=== PATIENT | female | born 1950 | race Caucasian/White ===

== ENCOUNTER 2023-04-27 07:46 | Outpatient (CLI) | payer MEDICARE, OTHER ==
[~2023-04-27] VITALS: Ht 162.6 cm; Wt 69.9 kg
[2023-04-27 08:06] VITALS: BP 163/84; PULSE 62; TEMP 98.1
[2023-04-27] MEDS ORDERED: ESTRACE2 MG PO (08:16)
--- NOTE | 2023-04-27 08:50 | NUR ---
pt observed for 20 minutes following initial injection of evenity. vs remain within normal limits and she ambulates independently following injection. pt free from acute concerns and complaints upon discharge. pt continues to tolerate po fluids.
== END 2023-04-27 09:06 | disposition home or self-care (01) ==
LOC: EUO 07:46
DX: M81.0 Age-related osteoporosis without current pathological fracture (principal)
CPT/HCPCS: J3111

== ENCOUNTER 2023-05-25 14:25 | Outpatient (RCR) | payer MEDICARE, OTHER ==
[~2023-05-25] VITALS: Ht 162.6 cm; Wt 69.4 kg
[2023-05-25 09:22] VITALS: BP 154/83; PULSE 70; TEMP 97.7
[~2023-05-25 14:25] MED LIST: ESTRACE2 MG PO; EVENITY (2210 MG/2.3 SQ
== END 2023-05-25 14:58 ==
LOC: EUO 14:25
DX: M81.0 Age-related osteoporosis without current pathological fracture (principal)
CPT/HCPCS: J3111

== ENCOUNTER 2023-07-24 14:06 | Outpatient (RCR) | payer MEDICARE, OTHER ==
[~2023-07-24] VITALS: Ht 162.6 cm; Wt 68.7 kg
[2023-07-24 14:18] VITALS: BP 145/91; PULSE 64; TEMP 97.8
--- NOTE | 2023-07-24 14:27 | NUR ---
pt tolerated injections well and vs remained within normal limits. pt ambulated to main lobby. free from acute concerns and complaints.
[2023-07-24] MEDS ORDERED: Romosozumab-aqqg 210 MG/2.34 ML 2-Syringe KIT SQ ONE (14:30)
== END 2023-07-24 14:29 | disposition home or self-care (01) ==
LOC: EUO 14:06
DX: M81.0 Age-related osteoporosis without current pathological fracture (principal)
CPT/HCPCS: J3111

== ENCOUNTER 2023-11-14 14:03 | Outpatient (RCR) | payer MEDICARE, OTHER ==
[~2023-11-14] VITALS: Ht 162.6 cm; Wt 67.0 kg
[2023-11-14] MEDS ORDERED: Romosozumab-aqqg 210 MG/2.34 ML 2-Syringe KIT SQ ONE (14:15)
[2023-11-14 14:23] VITALS: BP 127/79; PULSE 89; TEMP 98
--- NOTE | 2023-11-14 14:35 | NUR ---
Pt tolerated evenity without issue. She exits dept with steady gait. Free of complaints at discharge.
== END 2023-11-14 14:35 | disposition home or self-care (01) ==
LOC: EUO 14:03
DX: M81.0 Age-related osteoporosis without current pathological fracture (principal)
CPT/HCPCS: J3111

== ENCOUNTER 2023-12-14 16:07 | Outpatient (CLI) | payer MEDICARE, OTHER ==
[~2023-12-14] VITALS: Ht 162.6 cm; Wt 68.3 kg
[2023-12-14] MEDS ORDERED: Romosozumab-aqqg 210 MG/2.34 ML 2-Syringe KIT SQ ONE (16:15)
[2023-12-14 16:19] VITALS: BP 142/81; PULSE 73; TEMP 98.2
== END 2023-12-14 16:30 ==
LOC: EUO 16:07
DX: M81.0 Age-related osteoporosis without current pathological fracture (principal)
CPT/HCPCS: J3111

== ENCOUNTER 2024-01-11 12:50 | Outpatient (CLI) | payer MEDICARE, OTHER ==
[~2024-01-11] VITALS: Ht 162.6 cm; Wt 68.7 kg
[2024-01-11] MEDS ORDERED: Romosozumab-aqqg 210 MG/2.34 ML 2-Syringe KIT SQ ONE (15:30)
[2024-01-11 15:39] VITALS: BP 132/80; PULSE 75; TEMP 98.3
--- NOTE | 2024-01-11 15:46 | NUR ---
PT TOLERATED INJECTIONS WELL. VS REMAINED WITHIN NORMAL LIMITS. PT FREE FROM ACUTE CONCERNS AND COMPLAINTS UPON DISCHARGE. NEXT APPOINTMENT SCHEDULED.
== END 2024-01-11 15:47 | disposition home or self-care (01) ==
LOC: EUO 12:50
DX: M81.0 Age-related osteoporosis without current pathological fracture (principal)
CPT/HCPCS: J3111

== ENCOUNTER 2024-02-22 11:37 | Outpatient (RCR) | payer MEDICARE, OTHER ==
[~2024-02-22] VITALS: Ht 162.6 cm; Wt 67.7 kg
[2024-02-22 11:49] VITALS: BP 149/81; PULSE 77; TEMP 98.2
[2024-02-22] MEDS ORDERED: Romosozumab-aqqg 210 MG/2.34 ML 2-Syringe KIT SQ ONE (12:00)
== END 2024-02-22 12:13 | disposition home or self-care (01) ==
LOC: EUO 11:37
DX: M81.0 Age-related osteoporosis without current pathological fracture (principal)
CPT/HCPCS: J3111